=== PATIENT | male | born 1945 | race Caucasian/White ===

== ENCOUNTER 2023-11-05 12:49 | Inpatient (IN) | payer OTHER, MEDICAID ==
[~2023-11-05] VITALS: Ht 180.3 cm; Wt 59.9 kg
[2023-11-05 13:06] VITALS: BP 108/74; PULSE 77; RESP 16; TEMP 97.2; O2SAT 96
[2023-11-05 14:08] LABS: BASOPHILS % (AUTO) 0.4 % (0.0-2.0); HEMATOCRIT 37.6 % (36-52); HEMOGLOBIN 12.8 g/dL (12.0-18.0); LYMPHOCYTES # (AUTO) 0.4 K/uL (2.0-11.5); LYMPHOCYTES % (AUTO) 5.9 % (20.5-51.1); MEAN CORPUSCULAR HEMOGLOBIN 34 pg (27-31); MEAN CORPUSCULAR HGB CONC 34 g/dL (33-37); MEAN CORPUSCULAR VOLUME 98.3 fL (80-94); MONOCYTES # (AUTO) 0.9 K/uL (0.8-1.0); MONOCYTES % (AUTO) 13.9 % (1.7-9.3); NEUTROPHILS # (AUTO) 5.1 K/uL (1.8-7.7); NEUTROPHILS % (AUTO) 79.8 % (42.2-75.2); PLATELET COUNT (AUTO) 120 K/uL (140-450); RED BLOOD CELL COUNT(AUTO) 3.82 MIL/uL (4.20-6.10); RED CELL DISTRIBUTION WIDTH 14.5 % (11.6-13.7); WHITE BLOOD COUNT (AUTO) 6.4 K/uL (4.8-10.8)
[2023-11-05 14:26] LABS: ANION GAP 9.8 (8-16); CALCIUM 8.3 mg/dL (8.5-10.1); CARBON DIOXIDE 32.1 mmol/L (21-32); CHLORIDE 99 mmol/L (98-107); GLUCOSE 92 mg/dL (74-106); POTASSIUM 3.9 mmol/L (3.5-5.1); SODIUM SERUM 137 mmol/L (136-145); UREA NITROGEN, BLOOD 33 mg/dL (7-18)
[2023-11-05 14:32] LABS: ALANINE AMINOTRANSFERASE 6 U/L (12-78); ALBUMIN 2.5 g/dL (3.4-5.0); ALKALINE PHOSPHATASE 49 U/L (50-136); ASPARTATE AMINOTRANSFERASE 47 U/L (15-37); BILIRUBIN,DIRECT 0.1 mg/dL (0.0-0.3); LIPASE 34 U/L (16-77); TOTAL BILIRUBIN 0.4 mg/dL (0.0-1.0); TOTAL PROTEIN, SERUM 6.4 g/dL (6.4-8.2)
[2023-11-05] MEDS: NACL 0.9% 1,000 ML IV ONE (15:04)
[2023-11-05] MEDS ORDERED: DIVA500T37 PO (17:04)
[2023-11-05] MEDS ORDERED: TRAZ-466 PO (17:04)
[2023-11-05] MEDS ORDERED: MIRT7.5T14 PO (17:04)
[2023-11-05] MEDS ORDERED: CARB1TAB39 PO (17:04)
[2023-11-05] MEDS ORDERED: ESCI20TA49 PO (17:04)
[2023-11-05] MEDS ORDERED: DONE5TAB34 PO (17:04)
[2023-11-05] MEDS ORDERED: ATOR10TA51 PO (17:04)
[2023-11-05] MEDS: NACL 0.9% 1,000 ML IV SCH (18:00)
[2023-11-05 18:12] LABS: BILIRUBIN,URINE 1+ (NEGATIVE); BLOOD, URINE NEGATIVE (NEGATIVE); COLOR,URINE YELLOW (YELLOW); LEUKOCYTE ESTERASE ,URINE NEGATIVE (NEGATIVE); NITRITE, URINE NEGATIVE (NEGATIVE); PROTEIN,URINE 1+ (NEGATIVE); UGLUCOSE TRACE (NEGATIVE)
[2023-11-05 18:16] LABS: APPEARANCE,URINE SLIGHTLY HAZY (CLEAR)
[2023-11-05 18:20] LABS: ICTOTEST POSITIVE (NEGATIVE)
[2023-11-05 18:21] LABS: BACTERIA,URINE 0-2 /HPF (None Seen); MUCUS,URINE None Seen /LPF (None Seen); RBC,URINE 0-5 /HPF (0-5); SQUAMOUS EPITHELIAL CELL,UR 0-3 (FEW) /LPF (0-3 (FEW)); WBC,URINE 0 /HPF (0-5)
[2023-11-05 20:36] VITALS: BP 154/94; PULSE 58; RESP 18; TEMP 98.8; O2SAT 97
[2023-11-05] MEDS ORDERED: NACL 0.9% 1,000 ML IV SCH (23:35)
[2023-11-05] MEDS ORDERED: HYDROcodone/APAP 7.5/325 MG 1 TAB PO PRN (23:35)
[2023-11-05] MEDS ORDERED: ACETAMINOPHEN 325 MG TAB PO PRN (23:35)
[2023-11-05] MEDS ORDERED: ONDANSETRON 4 MG/2 ML VIAL IVP PRN (23:35)
[2023-11-06] VITALS: BP 138/86; PULSE 60; RESP 18; TEMP 97.8; O2SAT 98
[2023-11-06 00:08] LABS: INR 1.03 (0.8-1.2); PARTIAL THROMBOPLASTIN TIME 28.7 secs (22-35.6); PROTHROMBIN TIME 10.8 secs (10.8-13.4)
[2023-11-06 00:13] LABS: LACTIC ACID 1.3 mmol/L (0.4-2.0)
[2023-11-06] MEDS: methylPREDNISolone SS 40 MG/ML VIAL IVP ONE (00:57)
[2023-11-06 01:35] LABS: FREE T4 (FREE THYROXINE) 1.06 ng/dL (0.76-1.46); PHOSPHORUS 3.3 mg/dL (2.5-4.9); THYROID STIMULATING HORMONE 2.41 uIU/mL (0.34-3.74)
[2023-11-06 01:36] LABS: MAGNESIUM 1.9 mg/dL (1.8-2.4)
[2023-11-06 01:37] LABS: CHOL/HDL RATIO 2.2 (1-4.5)
[2023-11-06 04:00] VITALS: BP 142/88; PULSE 65; RESP 16; TEMP 97.4; O2SAT 97
[2023-11-06 06:14] LABS: ANION GAP 14.9 (8-16); CARBON DIOXIDE 27.7 mmol/L (21-32); CHLORIDE 101 mmol/L (98-107); CREATININE 0.8 mg/dL (0.6-1.3); GLUCOSE 79 mg/dL (74-106); POTASSIUM 3.6 mmol/L (3.5-5.1); SODIUM SERUM 140 mmol/L (136-145); UREA NITROGEN, BLOOD 31 mg/dL (7-18)
[2023-11-06 06:46] LABS: MAGNESIUM 1.9 mg/dL (1.8-2.4); PHOSPHORUS 2.5 mg/dL (2.5-4.9)
[2023-11-06 07:59] LABS: BASOPHILS % (AUTO) 0.2 % (0.0-2.0); HEMATOCRIT 39.2 % (36-52); HEMOGLOBIN 12.9 g/dL (12.0-18.0); LYMPHOCYTES # (AUTO) 0.8 K/uL (2.0-11.5); MEAN CORPUSCULAR HEMOGLOBIN 33 pg (27-31); MEAN CORPUSCULAR HGB CONC 33 g/dL (33-37); MEAN CORPUSCULAR VOLUME 100.1 fL (80-94); MONOCYTES # (AUTO) 0.5 K/uL (0.8-1.0); MONOCYTES % (AUTO) 8.7 % (1.7-9.3); NEUTROPHILS # (AUTO) 4.6 K/uL (1.8-7.7); NEUTROPHILS % (AUTO) 77.1 % (42.2-75.2); PLATELET COUNT (AUTO) 118 K/uL (140-450); RED BLOOD CELL COUNT(AUTO) 3.92 MIL/uL (4.20-6.10); RED CELL DISTRIBUTION WIDTH 14.5 % (11.6-13.7); WHITE BLOOD COUNT (AUTO) 5.9 K/uL (4.8-10.8)
[2023-11-06 08:00] VITALS: BP 142/88; PULSE 62; PULSE 65; RESP 16; RESP 20; TEMP 97.4; O2SAT 97
[2023-11-06] MEDS: ESCITALOPRAM 20 MG TAB PO SCH (12:26)
[2023-11-06] MEDS: PANTOPRAZOLE 40 MG INJ VIAL IVP SCH (12:26)
[2023-11-06] MEDS: methylPREDNISolone SS 40 MG/ML VIAL IVP SCH (12:26)
[2023-11-06] MEDS: CARBIDOPA/LEVODOPA 25/100 MG 1 TAB PO SCH (12:27)
[2023-11-06] MEDS: DIVALPROEX 500 MG TABEC PO SCH (12:27)
[2023-11-06] MEDS: ATORVASTATIN 20 MG TAB PO SCH (12:27)
[2023-11-06] MEDS: DOCUSATE SODIUM 100 MG GELCAP PO SCH (12:27)
[2023-11-06 16:00] VITALS: BP 122/67; PULSE 68; RESP 17; TEMP 97.8; O2SAT 97
[2023-11-06 18:42] VITALS: BP 132/63; PULSE 69; RESP 16; TEMP 97.4; O2SAT 97
[2023-11-06 19:30] LABS: AMPHETAMINE, URINE NEGATIVE ng/ml (NEG <=1000); BARBITURATE, URINE NEGATIVE ng/ml (NEG <=200); BENZODIAZEPINE, URINE NEGATIVE ng/mL (NEG <=200); CANNABINOID, URINE NEGATIVE ng/mL (NEG <=50); COCAINE, URINE NEGATIVE ng/mL (NEG <=300); OPIATE, URINE NEGATIVE ng/mL (NEG <=2000); PHENCYCLIDINE SCREEN,URINE NEGATIVE ng/mL (NEG <=25)
[2023-11-06 20:00] VITALS: BP 152/85; PULSE 60; RESP 19; TEMP 97.2; O2SAT 99
[2023-11-06] MEDS: DONEPEZIL 10 MG TAB PO SCH (20:46)
[2023-11-06] MEDS: MIRTAZAPINE 15 MG TAB PO SCH (20:47)
[2023-11-06] MEDS: traZODone 50 MG TAB PO SCH (20:47)
[2023-11-06] MEDS ORDERED: DONEPEZIL HCL PO SCH (21:00)
[2023-11-06] MEDS ORDERED: NON-FORMULARY ITEM (Atorvastatin Calcium 1 TAB) PO SCH (21:00)
[2023-11-06] MEDS ORDERED: MIRTAZAPINE PO SCH (21:00)
[2023-11-07 04:00] VITALS: BP 147/67; PULSE 58; RESP 19; TEMP 97; O2SAT 100
[2023-11-07 05:51] LABS: BASOPHILS % (AUTO) 0.2 % (0.0-2.0); HEMATOCRIT 34.7 % (36-52); HEMOGLOBIN 11.8 g/dL (12.0-18.0); LYMPHOCYTES # (AUTO) 0.8 K/uL (2.0-11.5); LYMPHOCYTES % (AUTO) 13.7 % (20.5-51.1); MEAN CORPUSCULAR HEMOGLOBIN 33 pg (27-31); MEAN CORPUSCULAR HGB CONC 34 g/dL (33-37); MEAN CORPUSCULAR VOLUME 98.6 fL (80-94); MONOCYTES # (AUTO) 0.7 K/uL (0.8-1.0); MONOCYTES % (AUTO) 11.5 % (1.7-9.3); NEUTROPHILS # (AUTO) 4.4 K/uL (1.8-7.7); NEUTROPHILS % (AUTO) 74.6 % (42.2-75.2); PLATELET COUNT (AUTO) 114 K/uL (140-450); RED BLOOD CELL COUNT(AUTO) 3.52 MIL/uL (4.20-6.10); RED CELL DISTRIBUTION WIDTH 14.1 % (11.6-13.7)
[2023-11-07 06:06] LABS: MAGNESIUM 1.8 mg/dL (1.8-2.4)
[2023-11-07 06:10] LABS: ANION GAP 10.5 (8-16); CALCIUM 7.9 mg/dL (8.5-10.1); CHLORIDE 103 mmol/L (98-107); CREATININE 0.7 mg/dL (0.6-1.3); GLUCOSE 112 mg/dL (74-106); POTASSIUM 3.5 mmol/L (3.5-5.1); SODIUM SERUM 139 mmol/L (136-145); UREA NITROGEN, BLOOD 23 mg/dL (7-18)
[2023-11-07 08:00] VITALS: BP 157/88; PULSE 58; PULSE 60; RESP 18; TEMP 97.3; O2SAT 100; O2SAT 95
[2023-11-07 12:00] VITALS: BP 158/95; PULSE 60; RESP 18; TEMP 98; O2SAT 98
[2023-11-07 16:00] VITALS: BP 158/88; PULSE 62; RESP 18; TEMP 98.5; O2SAT 99
[2023-11-07 20:00] VITALS: BP 149/83; PULSE 64; PULSE 67; RESP 18; TEMP 97.9; O2SAT 97
[2023-11-08 04:00] VITALS: BP 127/85; PULSE 63; RESP 18; TEMP 97.6; O2SAT 97
[2023-11-08 05:45] LABS: BASOPHILS % (AUTO) 0.2 % (0.0-2.0); HEMATOCRIT 35.3 % (36-52); LYMPHOCYTES % (AUTO) 23.6 % (20.5-51.1); MEAN CORPUSCULAR HEMOGLOBIN 33 pg (27-31); MEAN CORPUSCULAR HGB CONC 34 g/dL (33-37); MEAN CORPUSCULAR VOLUME 97.8 fL (80-94); MONOCYTES # (AUTO) 0.8 K/uL (0.8-1.0); MONOCYTES % (AUTO) 18.9 % (1.7-9.3); NEUTROPHILS # (AUTO) 2.4 K/uL (1.8-7.7); NEUTROPHILS % (AUTO) 57.3 % (42.2-75.2); PLATELET COUNT (AUTO) 126 K/uL (140-450); RED BLOOD CELL COUNT(AUTO) 3.61 MIL/uL (4.20-6.10); RED CELL DISTRIBUTION WIDTH 14.1 % (11.6-13.7); WHITE BLOOD COUNT (AUTO) 4.2 K/uL (4.8-10.8)
[2023-11-08 06:03] LABS: ANION GAP 6.7 (8-16); CALCIUM 7.9 mg/dL (8.5-10.1); CARBON DIOXIDE 32.4 mmol/L (21-32); CHLORIDE 101 mmol/L (98-107); CREATININE 0.7 mg/dL (0.6-1.3); GLUCOSE 81 mg/dL (74-106); POTASSIUM 3.1 mmol/L (3.5-5.1); SODIUM SERUM 137 mmol/L (136-145); UREA NITROGEN, BLOOD 13 mg/dL (7-18)
[2023-11-08 06:35] LABS: MAGNESIUM 1.6 mg/dL (1.8-2.4); PHOSPHORUS 2.2 mg/dL (2.5-4.9)
[2023-11-08 08:00] VITALS: BP 146/82; PULSE 57; RESP 18; TEMP 97.7; O2SAT 96
[2023-11-08] MEDS ORDERED: POTASSIUM CHLORIDE 40 MEQ, LIDOCAINE 1% 25 MG in NACL 0.9% 250 ML IV ONE (09:20)
[2023-11-08] MEDS: MAG SULF 2000 MG/WATER PREMIX 100 ML IV SCH (10:13)
[2023-11-08] MEDS ORDERED: PRED10TA5 PO (10:30)
[2023-11-08] MEDS ORDERED: POTASSIUM PHOSPHATE 15 MM in NACL 0.9% 250 ML IV ONE (10:35)
[2023-11-08 11:56] VITALS: BP 146/82; PULSE 77; RESP 18; TEMP 97.7
[2023-11-08] MEDS: POTASSIUM CHLORIDE 10 MEQ TABER PO SCH (12:06)
== END 2023-11-08 12:50 | DRG 640 ==
LOC: MED 12:49 → MMU 16:50 → MTU 20:25
DX: E86.0 Dehydration (principal); E43 Unspecified severe protein-calorie malnutrition; N17.0 Acute kidney failure with tubular necrosis; Z68.1 Body mass index [BMI] 19.9 or less, adult; F20.9 Schizophrenia, unspecified; R19.7 Diarrhea, unspecified; G47.00 Insomnia, unspecified; K12.1 Other forms of stomatitis; I70.0 Atherosclerosis of aorta; D69.6 Thrombocytopenia, unspecified; G20.A1 Parkinson's disease without dyskinesia, without mention of fluctuations; F02.80 Dementia in other diseases classified elsewhere, unspecified severity, without behavioral disturbance, psychotic disturbance, mood disturbance, and anxiety; E78.5 Hyperlipidemia, unspecified; F32.9 Major depressive disorder, single episode, unspecified; E87.6 Hypokalemia; E83.42 Hypomagnesemia; E83.39 Other disorders of phosphorus metabolism; I34.81 Nonrheumatic mitral (valve) annulus calcification
CPT/HCPCS: 36415; 71045; 80048; 80076; 80305; 81001; 82140; 82150; 83036; 83605; 83690; 83735; 83880; 84100; 84439; 84443; 84484; 85025; 85610; 85730; 87040; 87081; 87086; 92526; 93005; 96360; 97110; 97112; 97116; 97163-GP; 97530; 99285; C9113; J2920; J3475

== ENCOUNTER 2023-11-15 20:31 | Emergency (ER) | payer OTHER, MEDICAID ==
[~2023-11-15] VITALS: Ht 172.7 cm; Wt 52.2 kg
[~2023-11-15 20:31] MED LIST: ATOR10TA51 PO; CARB1TAB39 PO; DIVA500T37 PO; DONE5TAB34 PO; ESCI20TA49 PO; MIRT7.5T14 PO; PRED10TA5 PO; TRAZ-466 PO
[2023-11-15 20:38] VITALS: BP 126/86; PULSE 76; RESP 18; TEMP 97.1; O2SAT 97; O2SAT 98
[2023-11-15 20:51] LABS: BASOPHILS # (AUTO) 0.1 K/uL (0.00-0.22); BASOPHILS % (AUTO) 1.4 % (0.0-2.0); EOSINOPHILS % (AUTO) 0.5 % (0.0-4.0); HEMATOCRIT 33.1 % (36-52); HEMOGLOBIN 11.4 g/dL (12.0-18.0); LYMPHOCYTES # (AUTO) 1.8 K/uL (2.0-11.5); LYMPHOCYTES % (AUTO) 19.1 % (20.5-51.1); MEAN CORPUSCULAR HEMOGLOBIN 33 pg (27-31); MEAN CORPUSCULAR HGB CONC 34 g/dL (33-37); MEAN CORPUSCULAR VOLUME 96.7 fL (80-94); MONOCYTES # (AUTO) 0.9 K/uL (0.8-1.0); MONOCYTES % (AUTO) 9.7 % (1.7-9.3); NEUTROPHILS # (AUTO) 6.5 K/uL (1.8-7.7); NEUTROPHILS % (AUTO) 69.3 % (42.2-75.2); PLATELET COUNT (AUTO) 274 K/uL (140-450); RED BLOOD CELL COUNT(AUTO) 3.43 MIL/uL (4.20-6.10); RED CELL DISTRIBUTION WIDTH 14.2 % (11.6-13.7); WHITE BLOOD COUNT (AUTO) 9.4 K/uL (4.8-10.8)
[2023-11-15 21:01] LABS: ANION GAP 9.5 (8-16); CALCIUM 8.2 mg/dL (8.5-10.1); CARBON DIOXIDE 28.5 mmol/L (21-32); CHLORIDE 100 mmol/L (98-107); CREATININE 0.8 mg/dL (0.6-1.3); GLUCOSE 85 mg/dL (74-106); SODIUM SERUM 134 mmol/L (136-145); UREA NITROGEN, BLOOD 17 mg/dL (7-18)
[2023-11-15 21:10] LABS: ACETAMINOPHEN < 0.5 ug/ml (10-30); ALCOHOL, BLOOD < 3 mg/dL (<10)
[2023-11-15 21:11] LABS: SALICYLATE < 2.8 mg/dL (2.8-20.0)
[2023-11-15 21:23] LABS: APPEARANCE,URINE CLEAR (CLEAR); BLOOD, URINE 1+ (NEGATIVE); COLOR,URINE YELLOW (YELLOW); PH,URINE 6.5 (5.0-9.0); PROTEIN,URINE NEGATIVE (NEGATIVE); UGLUCOSE NEGATIVE (NEGATIVE)
[2023-11-15 21:24] LABS: BILIRUBIN,URINE NEGATIVE (NEGATIVE); LEUKOCYTE ESTERASE ,URINE NEGATIVE (NEGATIVE); NITRITE, URINE NEGATIVE (NEGATIVE); UROBILINOGEN,URINE 0.2 EU/dL (0.2 - 1)
[2023-11-15 21:29] LABS: AMPHETAMINE, URINE NEGATIVE ng/ml (NEG <=1000); BARBITURATE, URINE NEGATIVE ng/ml (NEG <=200); BENZODIAZEPINE, URINE NEGATIVE ng/mL (NEG <=200)
[2023-11-15 21:30] LABS: CANNABINOID, URINE NEGATIVE ng/mL (NEG <=50); COCAINE, URINE NEGATIVE ng/mL (NEG <=300); OPIATE, URINE NEGATIVE ng/mL (NEG <=2000); PHENCYCLIDINE SCREEN,URINE NEGATIVE ng/mL (NEG <=25)
[2023-11-15 22:43] VITALS: O2SAT 98
[2023-11-16 00:44] VITALS: O2SAT 98
[2023-11-16 03:09] VITALS: O2SAT 98
[2023-11-16 05:46] VITALS: O2SAT 98
[2023-11-16 12:00] VITALS: BP 122/78; PULSE 78; RESP 16; TEMP 97.8; O2SAT 100
== END 2023-11-16 12:00 | disposition home or self-care (01) ==
LOC: MED 20:31
DX: R45.851 Suicidal ideations (principal); Z20.822 Contact with and (suspected) exposure to COVID-19; I10 Essential (primary) hypertension; F03.90 Unspecified dementia, unspecified severity, without behavioral disturbance, psychotic disturbance, mood disturbance, and anxiety; F12.90 Cannabis use, unspecified, uncomplicated; Z79.899 Other long term (current) drug therapy
CPT/HCPCS: 36415; 80048; 80305; 81003; 84484; 85025; 87426; 99285; G0480; G0482